=== PATIENT | female | born 1990 | race Caucasian/White ===

== ENCOUNTER 2021-01-05 13:17 | Inpatient (IN) | payer OTHER ==
[2021-01-05 14:03] VITALS: BMI 19.5
[2021-01-05] MEDS ORDERED: NICOTINE POLACRILEX 2 MG GUM BUC PRN (17:49)
[2021-01-05] MEDS ORDERED: ONDANSETRON *ODT* 4 MG TABLET SL PRN (17:49)
[2021-01-05] MEDS ORDERED: MAG HYDROX/AL HYDROX/SIMETH 30 ML UNIT-DOSE CUP PO PRN (17:49)
[2021-01-05] MEDS ORDERED: MENTHOL/PHENOL 1 EACH UD MM PRN (17:49)
[2021-01-05] MEDS ORDERED: MAGNESIUM HYDROX 2400MG/30ML ORAL SUSPENSION 30 ML CUP PO PRN (17:49)
[2021-01-05] MEDS ORDERED: BISMUTH SUBSALICYLATE 524 MG/30 ML PO PRN (17:49)
[2021-01-05] MEDS ORDERED: MAGNESIUM CITRATE 300 ML BOTTLE PO PRN (17:49)
[2021-01-05] MEDS ORDERED: ACETAMINOPHEN 325 MG TABLET (FP) PO PRN ×2 (17:49)
[2021-01-05] MEDS: hydrOXYzine PAMOATE 25 MG CAPSULE (FP) PO SCH ×2 (19:03→22:52)
[2021-01-05] MEDS: THIAMINE HCL 100 MG TABLET (FP) PO SCH (22:52)
[2021-01-05] MEDS: MELATONIN 5 MG TABLETS PO SCH (22:52)
[2021-01-06] MEDS: hydrOXYzine PAMOATE 25 MG CAPSULE (FP) PO SCH ×4 (07:45→16:59)
[2021-01-06] MEDS ORDERED: METHADONE HCL 10 MG TABLET (FOR DETOX USE ONLY) PO ONE (10:07)
[2021-01-06 10:52] LABS: HEMATOCRIT 37.8 % (32.4-45.2); HEMOGLOBIN 12.4 GM/dL (10.7-15.3); MCH 28.7 pg (25.7-33.7); MCHC 32.9 g/dl (32.0-36.0); MEAN CELL VOLUME 87.4 fl (80-96); PLATELET COUNT 283 10^3/uL (134-434); RBC 4.32 M/mm3 (3.60-5.2); RDW 14.3 % (11.6-15.6); WHITE BLOOD COUNT 10.4 K/mm3 (4.0-10.0)
[2021-01-06 10:54] LABS: CALCIUM 8.6 mg/dL (8.5-10.1)
[2021-01-06 10:55] LABS: ALBUMIN 3.9 g/dl (3.4-5.0); BLOOD UREA NITROGEN 12.7 mg/dL (7-18)
[2021-01-06 10:58] LABS: CREATININE 0.6 mg/dL (0.55-1.3)
[2021-01-06 10:59] LABS: BILIRUBIN,TOTAL 0.3 mg/dL (0.2-1); TOT PROT 6.7 g/dl (6.4-8.2)
[2021-01-06] MEDS: PRENATAL VITAMINS W/ FOLIC ACID TABLET (FP) PO SCH (11:10)
[2021-01-06] MEDS: diazePAM 5 MG TABLET PO PRN ×2 (12:46→17:37)
[2021-01-06] MEDS: NICOTINE 21 MG/24 HOURS TOPICAL PATCH TD SCH (14:00)
[2021-01-06] MEDS: cloNIDine HCL 0.1 MG TABLET PO PRN ×2 (15:26→19:59)
[2021-01-06] MEDS: METHOCARBAMOL 500 MG TABLET PO PRN (19:59)
[2021-01-07] MEDS: MELATONIN 5 MG TABLETS PO SCH ×2 (00:01→22:11)
[2021-01-07] MEDS: hydrOXYzine PAMOATE 25 MG CAPSULE (FP) PO SCH ×6 (00:02→22:11)
[2021-01-07] MEDS: THIAMINE HCL 100 MG TABLET (FP) PO SCH ×2 (00:02→22:11)
[2021-01-07] MEDS: diazePAM 5 MG TABLET PO PRN ×3 (02:23→21:12)
[2021-01-07] MEDS: METHOCARBAMOL 500 MG TABLET PO PRN ×3 (06:16→22:11)
[2021-01-07] MEDS ORDERED: METHADONE HCL 10 MG TABLET (FOR DETOX USE ONLY) ONE (09:48)
[2021-01-07] MEDS ORDERED: METHADONE HCL 5 MG TABLET (FOR DETOX USE ONLY) ONE (09:49)
[2021-01-07] MEDS ORDERED: METHADONE (DETOX) 20 MG, METHADONE (DETOX) 5 MG PO ONE (10:00)
[2021-01-07] MEDS: PRENATAL VITAMINS W/ FOLIC ACID TABLET (FP) PO SCH (10:19)
[2021-01-07] MEDS: NICOTINE 21 MG/24 HOURS TOPICAL PATCH TD SCH (10:20)
[2021-01-07] MEDS ORDERED: METHADONE HCL 5 MG TABLET (FOR DETOX USE ONLY) PO ONE (11:15)
[2021-01-07] MEDS: cloNIDine HCL 0.1 MG TABLET PO PRN ×2 (17:03→22:24)
[2021-01-07] MEDS: IBUPROFEN 400 MG TABLET (FP) PO PRN (17:23)
[2021-01-07] MEDS: SUVOREXANT 10 MG TABLET PO PRN (22:11)
[2021-01-08] MEDS ORDERED: METHADONE HCL 10 MG TABLET PO SCH (06:00)
[2021-01-08] MEDS: hydrOXYzine PAMOATE 25 MG CAPSULE (FP) PO SCH ×5 (06:15→22:13)
[2021-01-08] MEDS: diazePAM 5 MG TABLET PO PRN ×4 (06:17→22:12)
[2021-01-08] MEDS ORDERED: METHADONE HCL 10 MG TABLET (FOR DETOX USE ONLY) ONE (09:37)
[2021-01-08] MEDS ORDERED: METHADONE HCL 5 MG TABLET (FOR DETOX USE ONLY) ONE (09:38)
[2021-01-08] MEDS ORDERED: METHADONE (DETOX) 20 MG, METHADONE (DETOX) 5 MG PO ONE (10:00)
[2021-01-08] MEDS: PRENATAL VITAMINS W/ FOLIC ACID TABLET (FP) PO SCH (10:11)
[2021-01-08] MEDS: NICOTINE 21 MG/24 HOURS TOPICAL PATCH TD SCH (10:11)
[2021-01-08] MEDS: METHOCARBAMOL 500 MG TABLET PO PRN (20:24)
[2021-01-08] MEDS: cloNIDine HCL 0.1 MG TABLET PO PRN (20:25)
[2021-01-08] MEDS: SUVOREXANT 10 MG TABLET PO PRN (22:12)
[2021-01-08] MEDS: THIAMINE HCL 100 MG TABLET (FP) PO SCH (22:13)
[2021-01-08] MEDS: MELATONIN 5 MG TABLETS PO SCH (22:13)
[2021-01-09] MEDS: hydrOXYzine PAMOATE 25 MG CAPSULE (FP) PO SCH ×5 (06:29→22:34)
[2021-01-09] MEDS: diazePAM 5 MG TABLET PO PRN ×2 (06:31→10:10)
[2021-01-09] MEDS ORDERED: METHADONE HCL 10 MG TABLET (FOR DETOX USE ONLY) PO ONE (10:00)
[2021-01-09] MEDS: PRENATAL VITAMINS W/ FOLIC ACID TABLET (FP) PO SCH (10:31)
[2021-01-09] MEDS: NICOTINE 21 MG/24 HOURS TOPICAL PATCH TD SCH (10:33)
[2021-01-09] MEDS: METHOCARBAMOL 500 MG TABLET PO PRN ×2 (13:07→22:33)
[2021-01-09] MEDS: SUVOREXANT 10 MG TABLET PO PRN (22:33)
[2021-01-09] MEDS: IBUPROFEN 400 MG TABLET (FP) PO PRN (22:33)
[2021-01-09] MEDS: MELATONIN 5 MG TABLETS PO SCH (22:34)
[2021-01-09] MEDS: THIAMINE HCL 100 MG TABLET (FP) PO SCH (22:34)
[2021-01-10] MEDS: hydrOXYzine PAMOATE 25 MG CAPSULE (FP) PO SCH ×2 (07:34→10:17)
[2021-01-10] MEDS: cloNIDine HCL 0.1 MG TABLET PO PRN ×2 (07:45→17:22)
[2021-01-10] MEDS ORDERED: METHADONE HCL 5 MG TABLET (FOR DETOX USE ONLY) ONE (09:46)
[2021-01-10] MEDS ORDERED: METHADONE HCL 10 MG TABLET (FOR DETOX USE ONLY) ONE (09:46)
[2021-01-10] MEDS ORDERED: METHADONE (DETOX) 10 MG, METHADONE (DETOX) 5 MG PO ONE (10:00)
[2021-01-10] MEDS: NICOTINE 21 MG/24 HOURS TOPICAL PATCH TD SCH (10:14)
[2021-01-10] MEDS: PRENATAL VITAMINS W/ FOLIC ACID TABLET (FP) PO SCH (10:14)
[2021-01-10] MEDS: METHOCARBAMOL 500 MG TABLET PO PRN ×2 (10:17→22:11)
[2021-01-10 11:16] LABS: URINE APPEARANCE Clear; URINE BILIRUBIN Negative (NEGATIVE); URINE COLOR Yellow; URINE GLUCOSE (UA) Negative (NEGATIVE); URINE KETONE Negative (NEGATIVE); URINE LEUK ESTERASE Negative (NEGATIVE); URINE NITRITE Negative (NEGATIVE); URINE PROTEIN Negative (NEGATIVE); URINE UROBILINOGEN 0.2 mg/dL (0.2-1.0)
[2021-01-10] MEDS ORDERED: hydrOXYzine PAMOATE 25 MG CAPSULE (FP) PO PRN (12:06)
[2021-01-10] MEDS: diazePAM 5 MG TABLET PO PRN ×2 (13:23→20:20)
[2021-01-10] MEDS: SUVOREXANT 10 MG TABLET PO PRN (21:50)
[2021-01-10] MEDS: THIAMINE HCL 100 MG TABLET (FP) PO SCH (22:10)
[2021-01-10] MEDS: MELATONIN 5 MG TABLETS PO SCH (22:10)
[2021-01-11] MEDS: METHOCARBAMOL 500 MG TABLET PO PRN (06:36)
[2021-01-11] MEDS: cloNIDine HCL 0.1 MG TABLET PO PRN ×2 (06:39→13:45)
[2021-01-11] MEDS ORDERED: METHADONE HCL 10 MG TABLET (FOR DETOX USE ONLY) PO ONE (10:00)
[2021-01-11] MEDS ORDERED: diazePAM 5 MG TABLET PO PRN (10:02)
[2021-01-11] MEDS: PRENATAL VITAMINS W/ FOLIC ACID TABLET (FP) PO SCH (10:07)
[2021-01-11] MEDS: NICOTINE 21 MG/24 HOURS TOPICAL PATCH TD SCH (10:08)
[2021-01-11] MEDS ORDERED: METHOCARBAMOL 750 MG TAB PO PRN (11:57)
[2021-01-11 13:29] VITALS: BP 123/83; PULSE 124; TEMP 96.5
[2021-01-12] MEDS ORDERED: METHADONE HCL 5 MG TABLET (FOR DETOX USE ONLY) PO ONE (06:00)
== END 2021-01-11 14:55 | disposition home or self-care (01) | DRG 773 ==
LOC: YASAS 13:17 → UNDOADMIN 17:50 → Y3N 17:50
PROVIDERS: ADMIT Allergy & Immunology; ATTEND Allergy & Immunology
PROC: HZ2ZZZZ Detoxification Services for Substance Abuse Treatment (ICD-10-PCS; principal; 2021-01-05)
DX: F13.220 Sedative, hypnotic or anxiolytic dependence with intoxication, uncomplicated (principal); F10.20 Alcohol dependence, uncomplicated; F11.20 Opioid dependence, uncomplicated; F17.210 Nicotine dependence, cigarettes, uncomplicated; F32.9 Major depressive disorder, single episode, unspecified; F19.280 Other psychoactive substance dependence with psychoactive substance-induced anxiety disorder; F19.282 Other psychoactive substance dependence with psychoactive substance-induced sleep disorder; D72.829 Elevated white blood cell count, unspecified
CPT/HCPCS: 36415; 80053; 81003; 81025; 85027; 86780; C9803; J0735; Q0162; U0003; U0005

== ENCOUNTER 2022-06-08 16:00 | Emergency (ER) | payer OTHER ==
[2022-06-08 16:08] VITALS: BP 122/77; PULSE 82; RESP 18; TEMP 97.9; BMI 20.5
[2022-06-08] MEDS ORDERED: PHENAZOPYRIDINE HCL 100 MG TABLET (FP) PO ONE (19:48)
[2022-06-08] MEDS ORDERED: PHENAZOPYRIDINE HCL 100 MG TABLET (FP) ONE (19:52)
[2022-06-08 19:59] LABS: PH,URINE 7.5 (5.0-8.0); URINE APPEARANCE CLEAR; URINE BILIRUBIN NEGATIVE (NEGATIVE); URINE COLOR YELLOW; URINE GLUCOSE (UA) NEGATIVE (NEGATIVE); URINE KETONE NEGATIVE (NEGATIVE); URINE LEUK ESTERASE NEGATIVE (NEGATIVE); URINE NITRITE NEGATIVE (NEGATIVE); URINE PROTEIN NEGATIVE (NEGATIVE); URINE UROBILINOGEN 0.2 mg/dL (0.2-1.0)
[2022-06-08 20:02] LABS: HCG,QUALITATIVE URINE Negative
== END 2022-06-09 00:26 | disposition home or self-care (01) ==
LOC: JER 16:00
DX: R10.30 Lower abdominal pain, unspecified (principal)
CPT/HCPCS: 76830-TC; 76857; 81003; 84703; 87086; 99284-25